=== PATIENT | female | born 1985 ===

== ENCOUNTER 2022-01-09 13:52 | Emergency (ER) | payer OTHER ==
[~2022-01-09] VITALS: Ht 152.4 cm; Wt 71.7 kg
[~2022-01-09 13:52] MED LIST: DICYCLOMINE HCL20 MG PO; MACROBID 100 M100 MG PO; TUMS200 MG PO; TYLENOL325 MG PO; VITAFOL-OB+DHA1 EACH PO
--- NOTE | 2022-01-10 10:57 | EKG ---
[facility] [address] [facility] [place] [id number] Signed Sinus tachycardia Minimal voltage criteria for LVH, may be normal variant ( Ben product ) Borderline ECG No previous ECGs available Confirmed by VIOLETTE GILMAN MD ([id number] on 01/10/2022 10:56:56 AM Electronically Signed By: VIOLETTE GILMAN MD 01/10/22 1057 PATIENT NAME: FAYE RUTLEDGE Electrocardiogram DATE OF : 85 PHYSICIAN: VIOLETTE GILMAN MD REPORT #: [id number] REPORT IS CONFIDENTIAL AND NOT TO BE RELEASED WITHOUT AUTHORIZATION
== END 2022-01-09 15:10 | disposition home or self-care (01) ==
LOC: ED 13:52
DX: B34.9 Viral infection, unspecified (principal); Z88.0 Allergy status to penicillin
CPT/HCPCS: 93005; 93010; 99283-25; A9270